=== PATIENT | female | born 1975 | race Caucasian/White ===

== ENCOUNTER → 2017-06-27 12:01 | Outpatient (CLI) | payer BC, SELFPAY ==
--- NOTE | 2017-06-27 12:50 | HPBI_ITS ---
MAMMOGRAPHY - BILATERAL SCREENING REASON FOR EXAM: Female, 42 years old. Routine annual screening examination. PERTINENT HISTORY: History of bilateral breast biopsies. TECHNIQUE: Digital bilateral breast kena (3D mammographic acquisition) in the CC and MLO projections. 2-D mediolateral oblique (MLO) and craniocaudad (CC) views of both breasts were obtained. CAD: Full Field Digital Mammography with Computer Added Detection was performed. COMPARISON: Comparison is made with prior abdomen examination dated January 28, 2017. FINDINGS: Breast Composition: There are scattered areas of fibroglandular density. A tissue clip marker is seen in a nodular density in the upper midportion of the left breast. This is unchanged. A tissue clip marker is also seen in the mid portion of the right breast. No new nodular density is seen. Stable benign-appearing bilateral axillary lymph nodes. No other significant abnormalities are identified. There has been no significant change since the prior study. HPBI/DIAG MAMM W/CAD, BILAT IMPRESSION: Stable bilateral screening mammogram. Yearly follow-up mammogram recommended. (A) ASSESSMENT CATEGORY: BIRADS Category 2: Benign. A letter regarding these results will be sent to the patient by the facility within 30 days. Approximately 10% of breast cancers are not detected by mammography. A normal mammogram should not delay biopsy of a clinically suspicious abnormality. [id number] Electronically Signed: Bobby Goetz MD at 14:15 EST Tel [phone], Service support ,
[2017-06-27 14:33] LABS: T4 Free Direct 0.82 ng/dL (0.76-1.46); Thyroid Stim Hormone (TSH) 2.03 uIU/mL (0.358-3.74)
== END ==
PROVIDERS: Nurse Practitioner; Family Provider Student in an Organized Health Care Education/Training Program; PCP Student in an Organized Health Care Education/Training Program; Visit Provider Surgery
DX: R92.8 Other abnormal and inconclusive findings on diagnostic imaging of breast (principal); R94.6 Abnormal results of thyroid function studies
CPT/HCPCS: 36415; 77062; 77066; 84439; 84443; G0279

== ENCOUNTER → 2017-07-10 06:16 | Outpatient (CLI) | payer BC, SELFPAY ==
[2017-07-10 07:50] LABS: Free T3 2.6 pg/mL (2.18-3.98); T4 Free Direct 0.76 ng/dL (0.76-1.46)
== END ==
PROVIDERS: Family Provider Student in an Organized Health Care Education/Training Program; PCP Student in an Organized Health Care Education/Training Program; Visit Provider Nurse Practitioner
DX: E07.9 Disorder of thyroid, unspecified (principal)
CPT/HCPCS: 36415; 84439; 84443; 84481

== ENCOUNTER 2018-01-12 19:23 | Emergency (ER) | payer BC, SELFPAY ==
[2018-01-12 19:24] VITALS: BP 153/99; PULSE 82; RESP 20; TEMP 36.7; O2SAT 99; BMI 40.7
[2018-01-12] MEDS: Acetaminophen 500 MG Tablet 1000 MG PO (20:59)
[2018-01-12 21:11] LABS: Bacteria 0 SEEN /hpf (None Seen); Mucous, Urine 0 SEEN /hpf (<or=2+); Red Blood Cells-Urine 0 SEEN /hpf (0-5); Squamous Epithelial Cells - UA 0 SEEN /hpf (5-10); White Blood Cells 0 SEEN /hpf (0-5)
[2018-01-12 21:18] LABS: Color, Urine Yellow (Yellow); Glucose, Dipstick Normal (Normal); Ketone-Dipstick Negative (Negative); Leukocyte Esterase-Dipstick 25 /ul (Negative); Nitrite-Dipstick Negative (Negative); Occult Blood-Urine Negative /ul (Negative); Protein-Dipstick Negative (Negative); Specific Gravity, Urine 1.015 (1.002-1.030); Urine Bilirubin Dipstick Negative (Negative); Urine Clarity Clear (Clear); Urine Urobilinogen Normal (Normal); Urine pH 6.5 (5.0 - 8.0)
--- NOTE | 2018-01-12 22:49 | ED.DCSUM_ITS ---
- ER Visit Summary Date of Service: 01/12/18 Chief Complaint: Left ovary pain History of Present Illness: The patient is a 42 F reports rather abrupt onset of pain to the left lower quadrant of her abdomen approximately 2 hours prior to arrival. She denies vaginal bleeding. She denies dysuria. Patient states she is currently finishing up treatment for shingles. She had a rash to the left low back. Patient did take 800 mg of ibuprofen prior to arrival. She has had uterine ablation in the past. She has also had tubal ligation. Physical Examination: Vital signs significant for blood pressure 153/99, otherwise unremarkable. Patient is lying in bed. She appears uncomfortable but she is in no distress. Heart is regular rate and rhythm. Lung sounds are clear. Abdomen is soft with mild tenderness in the left lower quadrant. There is no guarding or rebound. Active bowel sounds are noted throughout. Back examination reveals a drying rash to the superior aspect of the left buttock. No vesicles are noted at this time. Test Results: Ultrasound of the pelvis shows no definite evidence of torsion. There is a small collapsed appearing cystic structure within the left mid ovary. Urinalysis is unremarkable. Emergency Department Course and Treatment: Patient was given Tylenol here she did drive herself to the emergency room. On repeat evaluation pain is improving. Test results were discussed with her. I think she likely had an ovarian cyst that ruptured causing her rather abrupt onset of pain. She will continue use Tylenol and ibuprofen at home for pain. Treatment Plan: [] Disposition: Discharge Impression: Left ovarian cyst This note was generated with [employer] dictation software. It may contain incorrect words, spelling, and punctuation that were not noted in review of the chart prior to signing ED Disposition - Plan for ED Patient: Disposition: Home or Assisted Living Chief Complaint: Complaint Instructions: ED Cyst Ovarian Referrals: Berry Chery DO [Primary Care Provider] - Additional Instructions: Follow-up with your FLOOR PLAN ADJUSTER as discussed.
[2018-01-12 22:53] VITALS: RESP 16
== END 2018-01-12 22:53 | disposition home or self-care (01) ==
PROVIDERS: Emergency Provider Emergency Medicine; Family Provider Student in an Organized Health Care Education/Training Program; PCP Student in an Organized Health Care Education/Training Program
DX: N83.202 Unspecified ovarian cyst, left side (principal); R21 Rash and other nonspecific skin eruption; E11.9 Type 2 diabetes mellitus without complications; F41.9 Anxiety disorder, unspecified; E06.3 Autoimmune thyroiditis; Z90.49 Acquired absence of other specified parts of digestive tract; Z98.51 Tubal ligation status; Z79.84 Long term (current) use of oral hypoglycemic drugs; Z79.899 Other long term (current) drug therapy; Z87.891 Personal history of nicotine dependence
CPT/HCPCS: 76830; 81001; 93976; 99283

== ENCOUNTER 2018-10-01 13:54 | Observation (INO) | payer OTHER, SELFPAY ==
--- NOTE | 2018-09-18 17:20 | PCM.HP.BLA ---
History and Physical Date of Admission: 10/01/18 Pre-Op History and Physical ? HPI: The patient is a 43 year old female presenting for pre-operative visit. She is scheduled for?LAVH, bilateral salpingectomy, possible cystoscopy, for pelvic pain and adenomyosis s/p endometrial ablation on 10/01/18. ??Procedure discussed along with risks, benefits and complications. ?Other alternatives discussed for management. Consent form signed??Yes.? PAST?MEDICAL?HISTORY PAST MEDICAL HISTORY Diagnosis Date ? Anxiety disorder ? ? Piper's disease ? ? HTN (hypertension) ? ? Hyperthyroidism 01/16/2015 ? Low HDL (under 40) 12/2013 ? LPRD (laryngopharyngeal reflux disease) ? ? Multinodular goiter 12/2013 ? Seasonal allergies ? ? Allergy skin tests Margaret Coulter. ? Stress fracture of left calcaneus 01/10/2016 ? Vitamin D deficiency 12/2013 ? ? PAST?SURGICAL?HISTORY PAST SURGICAL HISTORY Procedure Laterality Date ? LAPAROSCOPIC UTERINE NERVE ABLATION ? ? ? LIGATE FALLOPIAN TUBE ? ? ? Tubal ligation ? MAMMO STEREOTACTIC CORE BIOPSY LT Left 02/21/2017 ? Dr. Desai ? NOVASURE ? 2013 ? approx 2012 ? REMOVAL GALLBLADDER ? ? ? Cholecystectomy ? REMOVAL OF TONSILS,<12 Y/O ? ? ? Tonsillectomy ? ? CURRENT?MEDICATIONS ? Current Outpatient Medications: naproxen sodium (ALEVE ORAL) Take by mouth. Disp: Rfl: cyclobenzaprine (FLEXERIL) 5 mg tablet Take 1 tablet by mouth three times daily as needed for Muscle Spasm. Disp: 30 tablet Rfl: 1 buPROPion (WELLBUTRIN) 100 mg tablet Take 1 tablet by mouth once daily. In morning Disp: 90 tablet Rfl: 1 Biocidin Advanced Formula ([place] [employer]) Take 5 Drops by mouth three times daily. Disp: Rfl: Metabolic Synergy ([place]) Take 2 capsules by mouth twice daily. Disp: Rfl: nystatin (MYCOSTATIN, NILSTAT) 500,000 unit tab Take 1 tablet by mouth twice daily. Disp: 60 tablet Rfl: 1 losartan (COZAAR) 50 mg tablet Take 1 tablet by mouth once daily. Disp: 90 tablet Rfl: 1 albuterol HFA (PROAIR HFA) 90 mcg/actuation inhaler Inhale 2 Puffs as instructed every 4 hours as needed. Disp: 2 Inhaler Rfl: 3 ipratropium-albuterol (DUONEB) 0.5 mg-3 mg(2.5 mg base)/3 mL nebu Inhale 3 mL as instructed every 4 hours as needed (wheezing). Use over 5-15minutes per nebulizer. Disp: 60 Vial Rfl: 0 Nebulizer 1 Each as directed. NEBULIZER FOR HOME USE. ?DX: J45.50 Disp: 1 Each Rfl: 0 metFORMIN ER (GLUMETZA) 1,000 mg 24 hr tablet Take 1 tablet by mouth twice daily. Disp: 180 tablet Rfl: 3 BIOHM ?Whole Probiotic supplement - (for dimple/yeast) probiotic+saccharomyces+biofilm disruptor Take 1 capsule by mouth once daily. Start with 2 jars. No fridge needed. Take at least 2 hrs away from nystatin/candibactin/diflucan. Disp: Rfl: 0 CPAP Mask (per patient preference) optional chin strap (if indicated) , filters, tubing, humidifier and lifetime supplies. Dx TRAVIS ?- [facility] Disp: 1 Device Rfl: 0 B12 Folate - sublingual (Klaire/Prothera) Dissolve 1 tablet under the tongue daily with food. Place under your tongue Disp: Rfl: Vitamin D3 Liquid (Pure Encapsulations) Take 7 drops daily, with food Disp: Rfl: Meriva-SR ([place]len) Take 1 capsules three times daily. Disp: Rfl: ProEPA with Concentrated GLA ([place] [employer]) Take 2 capsules by mouth twice daily with meals. Disp: Rfl: mometasone (NASONEX) 50 mcg/actuation nasal spray Use 2 Sprays in the nose once daily. Disp: Rfl: CPAP Initiate Auto PAP @ 7-15 cm of water with humidification. Mask medium [place] [employer] Simplus full face mask without chin strap was used.(per patient preference) ?filters, tubing, humidifier and lifetime supplies. Disp: 1 Device Rfl: 0 Omeprazole (PRILOSEC) 40 mg capsule Take 40 mg by mouth once daily. Disp: Rfl: ? No current facility-administered medications for this visit.? ? ALLERGIES:?Sulfa (Sulfonamide Antibiotics); Sulfamethoxazole; Seasonal Allergies ? PERSONAL HISTORY:? 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 ?Occupation: BORING MACHINE OPERATOR ?Employer: [employer] ??Tobacco Use ?Smoking status: Former Smoker ?Packs/day: 1.00 ?Years: 18.00 ?Pack years: 18 ?Types: Cigarettes ?Start date: 02/28/1992 ?Quit date: 12/31/2009 ?Years since quittin.7 ?Smokeless tobacco: Never Used ?Tobacco comment: Father smoked in childhood home. ??Substance and Sexual Activity ?Alcohol use: Not Currently ?Comment: 1-2 glasses a month ?Drug use: No ?Sexual activity: Yes ? control/protection: Tubal Ligation ??Other Topics ?Concerns: ?Not on file ??Social History Narrative ?Moved to [place] 4 years ago, has remained in same home. ?Carpet throughout home. ?2 dogs in home for 7 years. ?Central air. Filters changed monthly. ?Born in [place], moved to [place] at age 9. ?Father smoked in childhood home. No one smokes in current home. ?Had asthma as a child, did not require medications. ?Milk allergy as a child. ? FAMILY HISTORY:? FAMILY?HISTORY FAMILY HISTORY Problem Relation Age of Onset ? Thyroid Mother ? ? Stroke Father ? ? other (Aortic aneurysm) Father ?Smoker ? Thyroid Sister ? ? other (Sarcoidosis) Brother ? ? Thyroid Maternal Grandmother ? ? Cancer Maternal Grandmother ?Pancreatic ? Diabetes Maternal Grandmother ? ? Cancer Maternal Grandfather ?Lung ? Heart Paternal Grandmother ? ? Heart Paternal Grandfather ? ? Asthma Son ? ? REVIEW OF SYMPTOMS: GENERAL: denies fevers or chills ENDOCRINOLOGY: has not been on steroids Cardiology : denies palpitations or chest pain Respiratory: denies SOB or cough Hematology: denies history of prolonged bleeding or easy bruising or VTE Allergy: Denies history of personal or family history of allergy to anesthesia ? ? PHYSICAL EXAMINATION: ? VITALS:?There were no vitals taken for this visit. ? GENERAL:??The patient is well nourished, well hydrated in no acute distress. ?, The patient is oriented to time, place, and person. NECK:?Supple. No lynphadenopathy, normal thyroid, no thyromegaly. LUNGS:?Clear to auscultation bilaterally. no wheezes, rhonchi or rales HEART:?Regular rate and rhythm, Normal heart sounds and No murmurs or gallops COMPUTER TECHNICAL SUPPORT SPECIALIST: Normal external genitalia, normal vagina with pink rugae. ?Smooth and nonfriable cervix. ?Uterus is mobile, moderately tender, Belle 8 weeks size. ? IMPRESSION:?Chronic pelvic pain s/p endometrial ablation, adenomyosis of the uterus ? PLAN:???The risks/benefits/alternatives and personal involved for the planned?LAVH, bilateral salpingectomy and possible cystoscopy?were reviewed with the patient. Her questions were answered to her satisfaction and she desires to proceed. ?Consent was signed. ?I reviewed with her postop instructions and expectations. D/w her considering midline entry above umbilicus or LUQ.?? ? I have reviewed and updated past medical and surgical history, medications and allergies? This history and physical was completed in my office on September 18, 2018. Her endometrial biopsy was done today and pathology is pending. Erica Drake M.D.
--- NOTE | 2018-09-24 15:32 | EKG12_ITS ---
Test Reason : PREOP Blood Pressure : / mmHG Vent. Rate : 093 BPM Atrial Rate : 093 BPM P-R Int : 154 ms QRS Dur : 076 ms QT Int : 362 ms P-R-T Axes : 047 040 046 degrees QTc Int : 450 ms Normal sinus rhythm with sinus arrhythmia Normal ECG Confirmed by TRISH CARRIZALES ([id number]), editorial cartoonist GLORIA RODRIGUEZ ([id number]) on 09/28/2018 2:34:48 PM Referred By: Erica Drake Confirmed By:TIGIST CARRIZALES
[2018-09-24 16:08] LABS: Hematocrit 40.9 % (37-47); Hemoglobin 13.6 g/dl (12.0-15.0); Mean Corp Hgb Conc 33.3 g/gl (32-36); Mean Corpuscular Hgb 28.6 pg (27.0-32.0); Mean Corpuscular Volume 85.9 fL (81-99); Mean Platelet Vol. 10.6 fl (6.2-12.0); Platelet Count 338 K/mm3 (150-450); RBC Distribution Width CV 12.8 % (11.6-14.6); RBC Distribution Width SD 39.8 fl (35.1-43.9); Red Blood Count 4.76 M/mm3 (4.2-5.4); White Blood Count 7.1 K/mm3 (4.4-11.0)
[2018-09-24 16:14] LABS: Scan Indicated on CBC? Y/N NO
[2018-09-24 16:30] LABS: Hemoglobin A1c 5.7 % (4.2-6.3)
[2018-09-24 16:36] LABS: Internal QC Validated? YES +Cl - CLEAR BKGD; Pregnancy, Urine Negative Negative
[2018-09-24 16:40] LABS: Anion Gap 5 (5-15); BUN 11 mg/dL (7-18); BUN/Creat Ratio 11.7 RATIO (10-20); Calcium,Total 9.1 mg/dL (8.5-10.1); Chloride 105 mmol/L (98-107); Creatinine, Serum 0.94 mg/dL (0.55-1.02); EST Glomerular Filtration Rate 69 mL/min (>60); Est Glom Filt Rate - Afr Amer 83 mL/min (>60); Glucose 91 mg/dL (74-106); Potassium 3.8 mmol/L (3.5-5.1); Sodium Level 137 mmol/L (136-145); Thyroid Stim Hormone (TSH) 2.47 uIU/mL (0.358-3.74)
[2018-10-01] VITALS (13 sets, daily range): BP systolic 95–142; BP diastolic 59–89; PULSE 68–88; RESP 14–16; TEMP 36.2–37; O2SAT 94–99; BMI 44.1
--- NOTE | 2018-10-01 | HYST_PTH ---
PATIENT: ETELVINA SUAZO LOC: [facility]3 U#:[id number] AGE/SX: 43/F ROOM: MS317 RE10/01/[address]: Dr. Erica Drake MD : 1975 BED: 1 DIS: 10/02/2018 SPEC #: [id number] RECD: 10/02/18 08:31 STATUS: MELY REConcepcion #: [id number] KEILA: 10/01/18 00:[address]: Erica Drake DEPT: SURGICAL PATHOLOGY RECD BY: Aashish Yi ENTERED: 10/02/18 09:09 SP TYPE: HYSTERECT OTHR DR: Dr. Berry Chery, DO Tissues: Uterus, NOS Procedures: Surgery Specimen Level V HEADER OPERATION: ERAS, laparoscopic assisted vaginal hysterectomy, salpingectomy PRE-OP DIAGNOSIS: Chronic pelvic pain status post endometrial ablation; adenomyosis of uterus TISSUE SUBMITTED: Uterus, cervix, bilateral fallopian tubes MICROSCOPIC DIAGNOSIS Uterus, cervix and bilateral fallopian tubes, hysterectomy, bilateral salpingectomy: Cervix - chronic cervicitis with focal parakeratosis. Nabothian cyst. Endometrium - proliferative pattern with reactive changes and tubal metaplasia. Myometrium - extensive adenomyosis with cystic change, recent and chronic hemorrhage. Fallopian tube #1- small paratubal cyst. Fallopian tube #2- no significant finding. CE:norma 10/06/18 COMMENT Case has been reviewed in consultation with Dr. Noland who concurs with the above diagnosis. IDC:AM MICROSCOPIC DESCRIPTION Slides are reviewed. GROSS DESCRIPTION Received in fixative is one container labeled with the patient's name and designated uterus. The specimen consists of a uterus with attached cervix and two detached segments of fallopian tubes. The uterus with cervix measures 10 x 7 x 4.6 cm and weighs 119 gm. The ectocervix is unremarkable. The cervical os is oval in contour. The endocervical canal measures 3.2 cm in length and is grossly unremarkable. The distorted endometrial cavity measures 4 cm in length and 3 cm in greatest width. No distinct endometrial surface is identified. The endometrium appears fibrotic. No mass lesions are identified and the gross appearance is consistent with ablated therapy. Several blood-filled cysts are present ranging in size from 0.2 to 1 cm in greatest dimension. The myometrium measures 2 cm in average thickness and is free of mass lesions. The right and left fallopian tubes are similar in appearance and have average lengths of 3.5 cm and average diameters of 0.5 cm. Photocomposition Keyboard Operator sections are submitted as follows: 1 - anterior cervix, 2 - posterior cervix, 3 & 4 - anterior uterine wall, 5 & 6 - posterior endometrium and myometrium, 7-9 - myometrial cystic structures, 10 - one fallopian tube serially sectioned and totally submitted, 11 - the other fallopian tube serially sectioned and totally submitted. / TOY:norma 10/05/18 TC:3 CPT: 61217
[2018-10-01] MEDS: dexAMETHasone 10 MG/ML Vial 8 MG IV (07:00)
[2018-10-01 10:45] LABS: Bedside Glucose 100 mg/dL (70-110)
[2018-10-01] MEDS: Acetaminophen 500 MG Tablet 1000 MG PO ×3 (10:53→22:50)
[2018-10-01] MEDS: Phenazopyridine 95 MG Tablet 190 MG PO (10:53)
[2018-10-01] MEDS: Celecoxib 200 MG Capsule 400 MG PO (10:53)
[2018-10-01] MEDS: Gabapentin 600 MG Tablet PO (10:53)
[2018-10-01] MEDS: Enoxaparin 40 MG/0.4 ML Syringe SC (10:54)
[2018-10-01] MEDS: Scopolamine 1mg/72hr Patch 1 PATCH TRANSDERM. (10:54)
[2018-10-01] MEDS: Lactated Ringers 1,000 ML 40 ML IV (11:15)
[2018-10-01] MEDS: Magnesium Sulfate 4gm/100mL 4 GM/100 ML IV.SOLN. IV (11:20)
[2018-10-01] MEDS: Cefazolin 2 GM in 0.9% Normal Saline 100 ML IV (12:02)
[2018-10-01] MEDS: Bupivacaine Mpf 0.5% 30 ML VIAL (13:40)
--- NOTE | 2018-10-01 13:54 | OP.PCM_ITS ---
Report of Operation Date of Procedure: 10/01/18 Pre-Operative Diagnosis: pelvic pain, adenomyosis of uterus, post endometrial ablation pain Post-Operative Diagnosis: same Surgery/Procedure Performed:: LAVH, bilateral salpingectomy Description of Surgical Findings:: previous tubal, normal ovaries, normal cervix and vagina, uterus was blanched, appeared to have fluid in corneal area business sales consultant: Giovanna Hernandez business sales consultant: Lashawn yang Type of Anesthesia:: General Anesthesiologist: Kathrine Muñiz Special Medications: none Specimen's removed: uterus, cervix, bilateral tubes Drains: vicente Estimated Blood Loss (mL): 75 Fluids Replaced: 1200 cc LR Description of Procedure: The patient was taken to the operating room where she was prepped and draped in the dorsal lithotomy position. Her arms were tucked to the side and padded and her legs were placed in the yellowfin stirrups. Care was taken to ensure that she was placed in a neurologically safe and neutral position. A weighted speculum was placed in the vagina and the anterior lip of the cervix was grasped with a single-tooth tenaculum. The uterus sounded to 8 centimeters. The Sarah uterine manipulator was placed and secured. The Vicente catheter was placed to straight drain. Attention was turned to the abdominal portion of the case. Before skin incisions were made they were infiltrated with 0.5% Marcaine solution for local anesthetic. A 5 mm Contreras's point incision was made and while tenting the anterior abdominal wall up with towel clamps a 5 mm blade less trocar and sleeve were advanced into the peritoneal cavity using the Visiport. Peritoneal placement was confirmed with the laparoscope the pneumoperitoneum was created, and the underlying abdominal contents were intact. The patient was placed in Trendelenburg and the above findings were noted. Right and left lateral 5 mm trochars were placed under direct visualization without difficulty. The antimesenteric portion of the tube was clamped sealed and transected serially on both sides with the LigaSure device. The round ligaments were clamped sealed and transected and a window was made in the peritoneum. The utero-ovarian ligaments were then clamped, sealed and transected with the LigaSure device and the pedicles were hemostatic The bladder flap was dissected down with the LigaSure device and blunt dissection and the uterine arteries were then skeletonized. The uterine arteries were clamped, sealed and transected on both sides with the LigaSure device. At this point the pedicles were all examined and found to be hemostatic. Attention was turned to the vaginal portion of the case. 1% lidocaine with dilute epinephrine solution was used to infiltrate the anterior vaginal epithelium over the cervix. An incision was made around the cervix and the vaginal epithelium. Vaginal epithelium was dissected back with blunt sharp dissection. The posterior colpotomy was made sharply and long weighted speculum was placed into the posterior cul-de-sac. The anterior colpotomy incision was made. The uterosacral ligaments were clamped, transected and suture-ligated. The cardinal ligaments were clamped, transected and suture-ligated. There is a small amount of peritoneum left on the patient's right side and this was clamped with Virginia clamp transected and suture-ligated. The uterine fundus was brought through the anterior colpotomy incision. A modified Sanchez suture was placed in the posterior cul-de-sac. A 2-0 PDS suture was placed to the posterior vaginal epithelium to the posterior cul-de-sac reefed across the peritoneum to the right uterosacral ligament back across the left uterosacral ligament and then back out through the midline. The posterior vaginal cuff was then run with an 2-0 Vicryl suture in a running locked fashion. At this point, the pedicles were all examined and hemostasis was assured. The vaginal cuff was then closed in a horizontal fashion with interrupted 0 Vicryl [id number] sutures. Care was taken to secure the vagina to the uterosacral ligaments. A sponge stick was placed in the vagina to help place traction against the vaginal cuff. The laparoscope was reinserted into the abdomen and the pneumoperitoneum was re- created. The pedicles were reexamined and found to be hemostatic. The vaginal cuff was hemostatic. Suzie was placed over the peritoneal edges and no active bleeding was noted through the Suzie. The right and left lateral ports were taken out and the sites were hemostatic. The pneumoperitoneum was released and even under low pressure there was no bleeding of any of the pedicles are vaginal cuff. The umbilical port was removed. The umbilical skin incisions were closed with Monocryl suture and skin glue by Dr Hernandez. The vaginal instruments were removed by me and a vaginal sweep was completed by me. The surgery was performed by me with assistance other than the portions dictated as above. There were no qualified residents available for this procedure. All sponge lap and needle counts were correct and the patient was transferred to the recovery room in stable condition. Grafts/Implants Used: none - Complications none - Admit VTE Documentation VTE Present on Admission: No VTE Mechan Device Prophylaxis: SCD's VTE Pharm Prophylaxis ordered?: Yes
[2018-10-01 14:15] LABS: Bedside Glucose 147 mg/dL (70-110)
[2018-10-01] MEDS: Ondansetron 4 MG/2 ML Vial IV (14:21)
[2018-10-01] MEDS: Ketorolac 30 MG/ML Syringe IV (22:50)
[2018-10-01] MEDS: Docusate Sodium 100 MG Capsule PO (22:50)
[2018-10-02] MEDS: Ketorolac 30 MG/ML Syringe IV ×2 (04:54→10:30)
[2018-10-02 04:56] VITALS: BP 97/62; PULSE 83; RESP 16; TEMP 36.8; O2SAT 95
[2018-10-02] MEDS: Acetaminophen 500 MG Tablet 1000 MG PO (04:56)
[2018-10-02 06:51] LABS: Hematocrit 38.4 % (37-47); Hemoglobin 12.5 g/dl (12.0-15.0); Mean Corp Hgb Conc 32.6 g/gl (32-36); Mean Corpuscular Hgb 28.8 pg (27.0-32.0); Mean Corpuscular Volume 88.5 fL (81-99); Mean Platelet Vol. 10.1 fl (6.2-12.0); Platelet Count 339 K/mm3 (150-450); RBC Distribution Width CV 13.2 % (11.6-14.6); RBC Distribution Width SD 42.7 fl (35.1-43.9); Red Blood Count 4.34 M/mm3 (4.2-5.4); White Blood Count 13.8 K/mm3 (4.4-11.0)
[2018-10-02 07:00] VITALS: O2SAT 97
[2018-10-02 07:00] LABS: Scan Indicated on CBC? Y/N NO
--- NOTE | 2018-10-02 09:07 | DCINST_ITS ---
Discharge Diet: No Restrictions Discharge Activity: Return to Normal Activity, May Not Drive - while taking narcotic pain medications., May Shower, May Take a Tub Bath - 4 weeks, no swimming or hot tubs for 6 weeks May resume sexual activity in: 6-8 weeks Weight Bearing Status: Weight bearing as tolerated Call your doctor if your incision/area has: Continuous Slow Oozing, Sudden Increased Bleeding, Increased Pain/ Swelling, Increased Redness, Foul Smelling D ischarge Call your doctor if you observe: Fever of 101 or Higher, Inability to urinate, Inability to have a bowel movement, Using more than one pad per hour Cleanse incision/area with: Soap & Water Allergies/Adverse Reactions: Allergies Sulfa (Sulfonamide Antibiotics) Allergy (Verified 09/24/18 08:27) Anaphylaxis Medications to take at Discharge Losartan Potassium [Cozaar] 50 mg PO DAILY 02/23/14 metformin ER 1,000 mg tablet,extended release 24hr 1,000 mg PO BID tab 05/26/17 omeprazole 40 mg capsule,delayed release 40 mg PO QDAY 05/26/17 Acyclovir [Zovirax] 800 mg PO 5X/DAY PRN 01/12/18 Albuterol Aerosols [Ventolin Aerosols] 2.5 mg INHALATION Q6H PRN PRN 09/24/18 Albuterol Inhaler [Ventolin Hfa] 1 - 2 puff INHALATION Q4H PRN PRN 09/24/18 Biocidin Advanced Formula 5 drop PO TID 09/24/18 Cholecalciferol (Vitamin D3) [Vitamin D3] 5 drop PO DAILY 09/24/18 Cyanocobalamin [Vitamin B12] 500 mcg SL DAILY@0800 09/24/18 Lactobacillus Acidophilus [Probiotic Acidophilus] 1 each PO DAILY 09/24/18 Metobolic Cenergy 2 cap PO BID 09/24/18 Nystatin 500,000 unit PO BID 09/24/18 buPROPion tablets [Wellbutrin tablets] 100 mg PO DAILY 09/24/18 Hydrocodone Bitart/Apap 5-325 [[place] 5/325] 1 - 2 tablet PO Q8 7 Days #22 tablet 10/02/18 The following prescriptions were given: Hydrocodone Bitart/Apap 5-325 [[place]mere 5/325] 1 - 2 tablet PO Q8 7 Days #22 tablet Orders to be completed after discharge: Type & Screen Time Frame: 09/24/18, Facility: [facility], Location: Laboratory 12 Lead EKG [[facility]] Time Frame: 09/24/18, Facility: [facility], Location: Cardiovascular Services Hemoglobin A1c Time Frame: 09/24/18, Location: Laboratory Basic Metabolic Profile (BMP) Time Frame: 09/24/18, Location: Laboratory CBC-Complete Blood Cnt No Diff Time Frame: 09/24/18, Location: Laboratory Thyroid Stim Hormone (TSH) Time Frame: 09/24/18, Location: Laboratory ,Urine Time Frame: 09/24/18, Location: Laboratory Primary Care Physician: Berry Chery DO [Primary Care Provider] - Test Results: Test results from this visit will be discussed in further detail at your follow- up appointment, if applicable. Please Follow Up With: Erica Drake MD - [phone] When: 1-2 and 6 weeks or as needed
--- NOTE | 2018-10-02 09:07 | PCM.PN.OB ---
Subjective: Pain well controlled, urinating without difficulty. Tolerating regular diet without nausea this morning. Ambulating without difficulty. No flatus or bowel movement yet. No other complaints. - Physical Exam General: Alert, Cooperative, No apparent distress Abdomen: Soft, Non-Distended, Tender - Appropriate Extremities: No edema Skin: Incision - Incisions are clean dry and intact with skin glue. Vital Signs Temp Pulse Resp BP Pulse Ox 98.2 F 83 16 97/62 95 10/02/18 04:56 10/02/18 04:56 10/02/18 04:56 10/02/18 04:56 10/02/18 04:56 Oxygen Flow Rate (L/min) 2 Oxygen Delivery Method Room Air Weight: 112.89 kg Body Mass Index (BMI) 44.1 Intake and Output for Last 24 Hours 09/30/18 10/01/18 10/02/18 23:59 23:59 23:59 Intake Total 4839 / 4839 698 / 698 Output Total 3520 / 3520 1000 / 1000 Balance 1319 / 1319 -302 / -302 Laboratory Tests Past 24 Hrs 10/02/18 06:10 WBC 13.8 H RBC 4.34 Hgb 12.5 Hct 38.4 MCV 88.5 MCH 28.8 MCHC 32.6 RDW 13.2 RDW Differential 42.7 Plt Count 339 MPV 10.1 POC Glucose 10/01/18 10/01/18 14:13 10:40 POC Glucose 147 H 100 Medical Necessity - Tobacco Use Smoking Status: Former smoker Tobacco Use: Non-smoker Assessment/Plan All Active Problems (Last Reviewed 08/05/17 @ 15:14 by Yamilka Pennington) Chronic lymphocytic thyroiditis (Acute) Chronic fatigue and malaise (Acute) Postoperative day #1 status post laparoscopic assisted vaginal hysterectomy with bilateral salpingectomy. Patient is doing well. Routine care. Reviewed with her operative findings and postoperative instructions and expectations. Discharge home today. Follow-up in my office in 1 to 2 weeks or as needed.
[2018-10-02 12:11] VITALS: BP 108/69; PULSE 97; RESP 18; TEMP 36.9; O2SAT 97
== END 2018-10-02 11:18 | disposition home or self-care (01) ==
LOC: SDC 14:21 → MS3 14:24
PROVIDERS: Admitting Provider Obstetrics & Gynecology; Family Provider Student in an Organized Health Care Education/Training Program; PCP Student in an Organized Health Care Education/Training Program; Referring Provider Obstetrics & Gynecology; Visit Provider Obstetrics & Gynecology
PROC: 0UT9FZZ Resection of Uterus, Via Natural or Artificial Opening With Percutaneous Endoscopic Assistance (ICD-10-PCS; CPT 58552; principal; 2018-10-01 11:30)
DX: N80.0 Endometriosis of uterus (principal); N88.8 Other specified noninflammatory disorders of cervix uteri; N83.8 Other noninflammatory disorders of ovary, fallopian tube and broad ligament; F41.9 Anxiety disorder, unspecified; E06.3 Autoimmune thyroiditis; I10 Essential (primary) hypertension; E55.9 Vitamin D deficiency, unspecified; E05.20 Thyrotoxicosis with toxic multinodular goiter without thyrotoxic crisis or storm; Z79.899 Other long term (current) drug therapy; Z79.84 Long term (current) use of oral hypoglycemic drugs; F17.210 Nicotine dependence, cigarettes, uncomplicated; K21.9 Gastro-esophageal reflux disease without esophagitis; E78.00 Pure hypercholesterolemia, unspecified; R73.03 Prediabetes; J45.909 Unspecified asthma, uncomplicated; G47.30 Sleep apnea, unspecified
CPT/HCPCS: 00940; 58552; 36415; 80048; 81025; 82962; 83036; 84443; 85027; 86850; 86900; 88307; 93005; 96374; 96376; 99218; J7120; G0378; G0379; J2405

== ENCOUNTER → 2019-02-25 08:12 | Outpatient (CLI) | payer OTHER, SELFPAY ==
[2018-10-01 16:29] VITALS: BMI 44.1
[2019-02-25 08:27] VITALS: BP 147/89; PULSE 91; RESP 16; TEMP 36.3; O2SAT 92; BMI 44.2
[2019-02-25] MEDS: Cosyntropin 0.25 MG Vial IM (08:48)
== END ==
PROVIDERS: Family Provider Student in an Organized Health Care Education/Training Program; PCP Student in an Organized Health Care Education/Training Program; Referring Provider Student in an Organized Health Care Education/Training Program; Visit Provider Student in an Organized Health Care Education/Training Program
DX: R53.83 Other fatigue (principal); E03.9 Hypothyroidism, unspecified; R63.8 Other symptoms and signs concerning food and fluid intake
CPT/HCPCS: 36415; 82533; 96372; J0834

== ENCOUNTER → 2025-03-30 | Outpatient (CLI) | payer BC, SELFPAY | END | disposition home or self-care (01) | PROVIDERS: PCP Student in an Organized Health Care Education/Training Program | DX: T78.40XA Allergy, unspecified, initial encounter (principal) | CPT/HCPCS: 36415 ==